=== PATIENT | male | born 1955 | race Caucasian/White ===

== ENCOUNTER 2024-06-30 11:40 | Emergency (ER) | payer BC, SELFPAY ==
[2024-06-30 11:55] VITALS: BP 135/83
[2024-06-30 13:20] VITALS: BMI 24.8
--- NOTE | 2024-06-30 14:08 | ED.GENMED ---
History of Present Illness
General
Chief Complaint: DVT/Possible Blood Clot
Source: patient
Exam Limitations: none
Time Seen by Provider: 06/30/24 13:57
Nursing documentation reviewed up to this point in time: agreed with
History of Present Illness
History of Present Illness:
69-year-old male with no reported chronic medical issues presents to the ER for evaluation of calf pain and swelling. Patient reports that he noticed symptoms about 4 days ago and have been constant since that time. He reports an aching pain in
the left calf. He says that about 2 days ago he noticed that there was associated swelling and this morning he noticed some associated redness. He was concerned for possible DVT and so he came to the ER for evaluation. He denies any injuries or
trauma. He denies any other complaints including chest pain or shortness of breath. He denies any history of DVT/PE. He denies any recent surgeries, cancer history, long flights/travel history.
Past History
Past History
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
ED Past Surgical History: None
Social History
Tobacco: Non-smoker
Review of Systems
Review of Systems
All Other Systems: ROS reviewed and negative except as documented in HPI and ROS
Respiratory: Denies trouble breathing
Cardiac: Denies chest pain
Musculoskeletal: Reports muscle pain (Calf pain, swelling, redness)
Phy Exam
Physical Exam
Physical Exam:
General: Awake, alert, oriented x3; no acute distress
Head: Normocephalic, atraumatic
Eyes: Conjunctiva normal
Throat: Airway intact, handling secretions
Neck: Trachea midline
Lungs: Breathing comfortably no distress, normal pulse ox, normal respiratory rate
Heart: Regular rate and rhythm
Neuro: No gross deficits
Extremities: Patient has +1 edema left lower leg with some slight erythema of the calf and lower anterior negron; he has left calf tenderness; no edema in the right lower extremity; he does have palpable DP, popliteal, femoral pulses bilaterally
Scores
Heart Failure Risk
Heart Failure Risk Score: Not Applicable
Heart Score for Chest Pain Patients
STEMI patient?: Not applicable
Withdrawal Assessment of Alcohol
Withdrawal Assessment Completed?: Not applicable
Course
Orders/Labs/Results
Orders:
Orders
06/30/24 11:57
US Legs, Left [US Periph Venous LOWER Ext LT] Urgent
Comment:
Reason For Exam: left calf swelling and pain
06/30/24 14:13
Case Management Consult ONCE
Case Management Consult: Other
Comment: Eliquis
06/30/24 14:17
Complete Blood Count/With Diff Urgent
Comprehensive Metabolic Panel Urgent
06/30/24 14:38
Apixaban [Eliquis] 10 mg PO ONCE ONE
Abnormal Lab Results
06/30/24
14:17
Absolute Lymphs (auto) 1.1 L 10^3/uL
(1.2-3.4)
Absolute Monos (auto) 0.8 H 10^3/uL
(0.1-0.6)
Lymphocytes % 15.3 L %
(20.5-51.1)
Monocytes % 11.2 H %
(1.7-9.3)
Creatinine 0.6 L mg/dL
(0.7-1.3)
06/30/24 14:17
06/30/24 14:17
Vital Signs
Initial and Last Documented VS:
Initial Vital Signs
Temp Pulse Resp BP Pulse Ox
36.5 C 81 16 135/83 97
06/30/24 11:55 06/30/24 11:55 06/30/24 11:55 06/30/24 11:55 06/30/24 11:55
Last Documented Vital Signs
Temp Pulse Resp BP Pulse Ox
36.5 C 81 16 135/83 97
06/30/24 11:55 06/30/24 11:55 06/30/24 11:55 06/30/24 11:55 06/30/24 11:55
MDM/Problems Addressed
Differential Diagnosis Includes:
DVT, cellulitis, Strain
MDM/Problems Addressed:
69-year-old male presents for evaluation of left calf pain, swelling, redness over the past 4 days. Vitals and exam as above. He had an ultrasound that was ordered in triage; ultrasound is positive for left calf DVT with occlusive thrombus in the
left peroneal and posterior tibial veins; no clot noted proximally in the lower leg. He denies any bleeding history and does not have any bleeding risk factors. He does not have any proximal clot. He has no signs or symptoms of PE�normal heart
rate, normal respiratory rate, normal pulse ox, no reported dyspnea or chest pain or any other complaints aside from lower extremity symptoms. I think he is a reasonable candidate for outpatient treatment of his DVT with NOAC; will check CBC and
CMP to ensure normal hemoglobin/platelets, normal renal function. Will discuss with case management to help with NOAC prescription.
CBC reviewed normal hemoglobin, normal platelet count. CMP shows normal renal function. manager software was able to speak with patient and insurance will cover NOAC; provided first dose here and prescription for further treatment. I spoke to him at
length about instructions for NOAC including need to take 10 mg twice daily x 1 week followed by 5 mg twice daily thereafter; we spoke about the need to follow-up with hematology as an outpatient. We spoke about return precautions including
shortness of breath, chest pain, syncope, worsening leg swelling or any other concerns. We spoke about low threshold for ER evaluation if he notes any bleeding or has any serious trauma. He indicated understanding. All questions answered.
*Radiology
Radiology exam reviewed: radiology read reviewed
*Pulse Oximetry
Patient hypoxic: no
*Critical Care Note
Total Time (30-74mins, 75-104mins- exclusive of procedures): Not Applicable
Data Reviewed
Source: patient
Patient Management
Discussion with other providers: Other (Discussed with case hardener)
Escalation/DeEscalation of care consider admission/obs:
Considered need for admission/inpatient treatment as described above
ED Attending Note
-
Portions of this chart may have been created with voice recognition software.� Occasional wrong word or��sound alike� substitutions may have occurred due to the inherent limitations of voice recognition software.
Discharge Plan
Departure
Patient Disposition: Home (Routine Discharge)
Date of Disposition: 06/30/24
Time of Disposition: 14:41
Patient with high blood pressure during this ER visit?: No
Discharge Problem:
DVT (deep venous thrombosis)
Instructions: Deep Vein Thrombosis (Blood Clots in the Legs) (DC)
Prescriptions:
New
Eliquis 5 mg tablet
5 mg PO BID Qty: 74 0RF
Rx Instructions:
Take 10mg (2 tabs) twice a day x1 week; then take 5mg (1 tab) twice a day thereafter
No Action
meclizine 25 MG tablet
25 mg PO Q8HPRN PRN (Reason: dizziness) Qty: 15 0RF
Referrals:
BRAYDON CORTEZ [Other]
Linh Galloway DO [Active] - Call in 1-3 days for appt (Bridge Worker--Please call tomorrow to make follow up appointment as soon as possible)
Activity Restrictions/Additional Instructions:
Thank you for visiting the Emergency Department at [facility].
1. Please schedule a follow up appointment as directed. Call first thing tomorrow morning to make an appointment.
2. If indicated, please take your medications as instructed and indicated on discharge paperwork.
3. If any of your symptoms do not improve, or persist, or become more severe within 6-12 hours, please return to the emergency department for further care.
4. Please return to the emergency department if you develop a headache, neck pain/stiffness, fever greater than 100.4F, chest pain, shortness of breath, persistent nausea, vomiting, slurred speech, difficulty walking, numbness/tingling, weakness,
signs of infection or any other symptoms that are worrisome to you.
Please call [phone] if you have any questions.
Interventions
Interventions:
*Risk Screen - Suicide Last Done: 06/30/24 11:55
*General Assessment Last Done: 06/30/24 13:17
*Neglect/Abuse Screening Last Done: 06/30/24 13:17
*ED COVID-19 Vaccine History Last Done: 06/30/24 13:17
ED- Cardiac Assessment Last Done: 06/30/24 13:30
ED- Pulmonary Assessment Last Done: 06/30/24 13:30
ED-Peripheral Vascular Assessment Last Done: 06/30/24 13:31
ED-Skin Assessment Last Done: 06/30/24 13:30
Discharge Date and Time
Print Language: TRISTANIAN
[2024-06-30 14:30] LABS: % Basophils 0.7 % (0-2); % Eosinophils 2.2 % (0-6); % Immature Granulocytes 0.3 % (0-0.5); % Lymphocytes 15.3 % (20.5-51.1); % Monocytes 11.2 % (1.7-9.3); % Neutrophils 70.3 % (42.2-75.2); Absolute Basophils 0.1 10^3/uL (0-0.2); Absolute Eosinophils 0.2 10^3/uL (0-0.7); Absolute Lymphocytes 1.1 10^3/uL (1.2-3.4); Absolute Monocytes 0.8 10^3/uL (0.1-0.6); Absolute Neutrophils 4.9 10^3/uL (1.4-6.5); Hematocrit 47.4 % (39.0-52.0); Mean Corp Hgb Conc. 33.8 g/dL (33.0-37.0); Mean Corpuscular Hgb 30.1 pg (27.0-31.0); Mean Corpuscular Volume 89.3 fL (80.0-94.0); Mean Platelet Volume 9.4 fL (7.4-10.4); Nucleated Red Blood Cells % 0 % (-); Platelet Count 302 10^3/uL (130-400); Red Blood Cell Count 5.31 10^6/uL (4.70-6.10); Red Cell Dist. Width 13.2 % (11.5-14.5)
--- NOTE | 2024-06-30 14:37 | CM ---
CM called patient's pharmacy and confirmed $40 copay for patient's ELiquis. CM provided patient with coupon.
[2024-06-30 14:41] LABS: ALT (SGPT) 24 U/L (0-50); AST (SGOT) 28 U/L (17-59); Albumin 3.9 g/dl (3.5-5.0); Alkaline Phosphatase 78 U/L (38-126); Blood Urea Nitrogen 14 mg/dl (9-20); Calcium 9.6 mg/dl (8.4-10.2); Carbon Dioxide 26 mmol/L (22-30); Chloride 102 mmol/L (98-107); Estimated Creatinine Clearance > 125 ml/min; Glucose 91 mg/dl (70-99); Potassium 4.5 mmol/L (3.5-5.1); Sodium 138 mmol/L (135-145); Total Bilirubin 0.8 mg/dl (0.2-1.3); Total Protein 6.3 g/dl (6.3-8.2); eGFR > 60.00
[2024-06-30] MEDS: ELIQUIS 10 MG PO (14:47)
[2024-06-30 15:00] VITALS: BP 132/78
== END 2024-06-30 15:20 | disposition home or self-care (01) ==
LOC: EMR 11:40
PROVIDERS: EMERGENCY PHYSICIAN Emergency Medicine
DX: I82.452 Acute embolism and thrombosis of left peroneal vein (principal); I82.442 Acute embolism and thrombosis of left tibial vein
CPT/HCPCS: 99284; 80053; 85025; 93971

== ENCOUNTER → 2024-10-14 09:09 | Outpatient (REF) | payer BC, SELFPAY | LOC: RAD 09:09 | PROVIDERS: ATTENDING PHYSICIAN Internal Medicine Hematology & Oncology | DX: I82.402 Acute embolism and thrombosis of unspecified deep veins of left lower extremity (principal) | CPT/HCPCS: 93971 ==